=== PATIENT | male | born 1985 | race Caucasian/White ===

== ENCOUNTER 2017-10-20 07:13 | Day surgery (SDC) | payer BC ==
[~2017-10-20 07:13] MED LIST: Lactated Ringers 1,000 ML IV SCH; Morphine 2 MG/ML Syringe IVPUSH PRN; Ondansetron 4 MG/2 ML SDV IVPUSH PRN; Sodium Chloride 0.9% 10 ML Syringe FLUSH PRN
[2017-10-20] MEDS ORDERED: ceFAZolin 1 GM in Sodium Chloride 0.9% 50 ML IV ONE ×2 (07:45→09:00)
[2017-10-20] MEDS ORDERED: Dexamethasone 4 MG/ML SDV ONE (09:35)
[2017-10-20] MEDS ORDERED: Midazolam 1 MG/ML 5 ML SDV ONE (09:35)
[2017-10-20] MEDS ORDERED: Ondansetron 4 MG/2 ML SDV ONE (09:35)
[2017-10-20] MEDS ORDERED: Propofol 1,000 MG/100 ML SDV ONE (09:35)
[2017-10-20] MEDS ORDERED: Glycopyrrolate 0.2 MG/ML 2 ML SDV ONE (09:35)
[2017-10-20] MEDS ORDERED: fentaNYL 250 MCG/5 ML SDV ONE ×2 (09:35)
[2017-10-20] MEDS ORDERED: Morphine 10 MG/ML Syringe ONE (10:54)
[2017-10-20] MEDS: Acetaminophen/HYDROcodone 325-5 MG Tab PO PRN ×2 (11:10→11:38)
--- NOTE | 2017-10-20 13:47 | OR ---
DATE OF OPERATION: 10/20/2017 IT PROGRAM MANAGER: Tammy Addison RN. PREOPERATIVE DIAGNOSIS: Supraumbilical hernia. POSTOPERATIVE DIAGNOSIS: Supraumbilical hernia. PROCEDURE: Open supraumbilical hernia repair with mesh. ANESTHESIA: General. ESTIMATED BLOOD LOSS: Minimal. COMPLICATIONS: None. INDICATIONS FOR THE PROCEDURE: The patient is a 31-year-old male, who has had a supraumbilical hernia for the past 4 years, has been getting larger form and more symptomatic, has been reducible with no obstructive symptoms. He would like it repaired. DESCRIPTION OF PROCEDURE: Informed consent was obtained from the patient. The patient was taken to the operating room, placed on table in supine position. General anesthesia was administered. The patient did receive preoperative antibiotics. His abdomen was prepped and draped in sterile fashion. Skin overlying the supraumbilical region was infiltrated with local anesthetic. A small incision carried out with 15 blade, dissecting down through subcutaneous tissue with electrocautery. We did encounter the hernia sac. This was bluntly dissected free as well as use of electrocautery preperitoneal fat was then reduced through approximately a 1 cm fascial defect. Subcutaneous fat was cleared from alongside of the fascial defect. A 4.3 cm circular self-expanding mesh was placed within the fascial defect in the preperitoneal space. This was sutured in place with 2-0 Prolene suture. Straps were then cut. The fascia was then closed with 0 Vicryl suture. Wound was irrigated and dried. No active bleeding was seen. The subcutaneous tissues were reapproximated with 2-0 Vicryl. The deep dermal layer was closed with 3-0 Vicryl. Skin was closed with 4-0 Monocryl in a running subcuticular fashion. Mastisol, Steri-Strips, and sterile dressings were applied. At the end the case, all sponge count, needle count, instrument counts correct. The patient tolerated procedure well, was extubated and brought to recovery room in good condition. ALBERT/NEETA /[id number]
== END 2017-10-20 13:50 | disposition home or self-care (01) ==
LOC: LB.SDS 07:13
PROVIDERS: ATTEND Surgery
DX: K42.9 Umbilical hernia without obstruction or gangrene (principal); Z79.899 Other long term (current) drug therapy
CPT/HCPCS: A9270-GY; C1781; J0690; J1100; J2250; J2270; J2405; J3010; J3490; J7050; J7120